=== PATIENT | female | born 1985 | race African-American/Black ===

== ENCOUNTER 2018-07-06 00:33 | Emergency (ER) | payer OTHER ==
[~2018-07-06] VITALS: Ht 167.6 cm; Wt 126.5 kg
[~2018-07-06 00:33] MED LIST: BACTRIM DS TAB1 EACH PO; GLIPIZIDE XL10 MG PO; GLUCOPHAGE500 MG PO; KEFLEX500 MG PO; MEDROLDOSEPACK PO; NOHOMEMEDICATIONS; TRIAMCINOLONE A80 G2 TOP
[2018-07-06] MEDS ORDERED: LISINOPRIL20 MG PO (01:01)
[2018-07-06] MEDS ORDERED: HYDROCHLOROTHIA25 M2 PO (01:01)
[2018-07-06] MEDS ORDERED: GLUCOPHAGE XR500 MG PO (01:02)
[2018-07-06] MEDS ORDERED: HUMALOG100 UNIT/1 SUBQ (01:02)
[2018-07-06 02:20] VITALS: BP 134/68
== END 2018-07-06 02:24 | disposition home or self-care (01) ==
LOC: ER 00:33
DX: J06.9 Acute upper respiratory infection, unspecified (principal); J02.9 Acute pharyngitis, unspecified; E11.9 Type 2 diabetes mellitus without complications; I10 Essential (primary) hypertension; Z79.4 Long term (current) use of insulin; Z79.899 Other long term (current) drug therapy

== ENCOUNTER 2019-03-22 18:32 | Inpatient (IN) | payer OTHER ==
[~2019-03-22] VITALS: Ht 167.6 cm; Wt 134.7 kg
[~2019-03-22 18:32] MED LIST changes: +GLUCOPHAGE XR500 MG PO; +HUMALOG100 UNIT/1 SUBQ; +HYDROCHLOROTHIA25 M2 PO; +LISINOPRIL20 MG PO
[2019-03-22 18:35] VITALS: BP 173/104
[2019-03-22 20:28] LABS: ABSOLUTE NEUTROPHILS 14.1 thou/uL (1.4-8.2); BASOPHILS 0.5 % (0.0-2.0); EOSINOPHILS 0.1 % (0.0-3.0); HEMATOCRIT 29.3 % (37.0-47.0); HEMOGLOBIN 9.5 gm/dL (12.0-15.0); LYMPHOCYTES 7.5 % (24.0-44.0); MCH 27.5 pg (26.0-34.0); MCHC 32.5 g/dL (28.0-37.0); MCV 84.6 fL (80.0-100.0); MONOCYTES 9.3 % (1.0-8.0); PLATELET COUNT 317 thou/uL (150-400); POLYS 82.6 % (36.0-66.0); RBC 3.46 mil/uL (4.20-5.00); RDW 13.8 % (10.5-14.5)
[2019-03-22 20:37] LABS: CALCIUM 9.2 mg/dL (8.5-10.1); CREATININE 0.8 mg/dL (0.6-1.0); POTASSIUM 4.4 mmol/L (3.5-5.1)
[2019-03-22 20:44] LABS: ALBUMIN 2.4 g/dL (3.4-5.0); TOTAL BILIRUBIN 0.8 mg/dL (<0.1-1.0); TOTAL PROTEIN 7.5 g/dL (6.4-8.2)
[2019-03-23] VITALS (10 sets, daily range): BP systolic 135–168; BP diastolic 81–102
[2019-03-23 06:04] LABS: HEMATOCRIT 27.7 % (37.0-47.0); HEMOGLOBIN 9.1 gm/dL (12.0-15.0); MCHC 32.9 g/dL (28.0-37.0); MCV 85.2 fL (80.0-100.0); RBC 3.25 mil/uL (4.20-5.00); WBC 16.4 thou/uL (4.0-11.0)
[2019-03-23 06:32] LABS: CALCIUM 8.8 mg/dL (8.5-10.1); CREATININE 0.9 mg/dL (0.6-1.0); POTASSIUM 4.4 mmol/L (3.5-5.1)
[2019-03-24 03:31] VITALS: BP 136/93
[2019-03-24 04:29] LABS: HEMOGLOBIN 8.4 gm/dL (12.0-15.0); MCH 27.6 pg (26.0-34.0); MCHC 32.5 g/dL (28.0-37.0); MCV 84.9 fL (80.0-100.0); RBC 3.06 mil/uL (4.20-5.00); RDW 13.9 % (10.5-14.5); WBC 15.6 thou/uL (4.0-11.0)
[2019-03-24 04:46] LABS: CALCIUM 8.7 mg/dL (8.5-10.1); CREATININE 0.8 mg/dL (0.6-1.0); POTASSIUM 4.7 mmol/L (3.5-5.1)
[2019-03-24 05:06] LABS: GLYCOHEMOGLOBIN (HGB A1C) 12.2 % (4.8-5.6)
[2019-03-24 07:56] VITALS: BP 143/95
[2019-03-24 11:06] VITALS: BP 167/103
[2019-03-24] MEDS ORDERED: AUGMENTIN 875-1 EACH PO (12:11)
[2019-03-24] MEDS ORDERED: METFORMIN HCL500 MG PO (12:11)
[2019-03-24 14:52] VITALS: BP 159/89
[2019-03-24 16:42] VITALS: BP 159/89
[2019-03-24 17:14] VITALS: BP 159/89
--- NOTE | 2019-03-27 14:05 | O ---
[facility] [place] [address] OPERATIVE REPORT Name: MARTITA MALONEY Room #: 211-P [facility] M.R.#: [id number] Admission: 03/22/19 ������������������ Attend Phys: Hamlet Garcia MD Discharge: 03/24/19 ������������������ Date of : 85 Report #: [id number] THIS REPORT FOR: //name// CC: FAM unknown PATRICIO HE Hamlet Garcia DATE OF SERVICE: 03/23/2019 PREOPERATIVE DIAGNOSIS: Large abscess in the right low back. POSTOPERATIVE DIAGNOSIS: Large abscess in the right low back. OPERATIVE PROCEDURE DONE: Incision and drainage of a large abscess on the right low back. OPERATING SURGEON: Dr. Tad Guaman INDICATIONS FOR THE PROCEDURE: The patient is a 33-year-old diabetic, morbidly obese, presented with a large swelling in the right low back region with a discharging wound. CT scan showed a large abscess. The patient was advised incision and drainage of the same. DESCRIPTION OF PROCEDURE: After explaining to the patient in detail and informed consent was obtained, the patient was identified in the preoperative holding area. The patient was transferred to the operating room and was placed in the supine position. Sequential compressive devices were placed for DVT prophylaxis. Appropriate preoperative antibiotics were given. After induction of anesthesia, the right flank and low back were prepped and draped in a sterile fashion. The patient was placed in the right lateral position. Through a transverse incision measuring approximately about 4 cm, the abscess cavity was entered and approximately about 50 mL of thick pus was suctioned out. The wound was then thoroughly irrigated with saline. Absolute hemostasis was ensured. The wound was then packed with 1 inch iodoform gauze, 1 inch Nu Gauze dressing was placed. The patient was stable at the end of the procedure. The patient was awoken from anesthesia and was transferred to the recovery room in stable condition. ESTIMATED BLOOD LOSS: Minimal. CONDITION OF THE PATIENT: Stable. FLUIDS GIVEN: Per anesthesia notes. SPECIMEN SENT: Pus for culture and sensitivity. [address] [address] OPERATIVE REPORT Name: MARTITA MALONEY [facility] Room #: 211-P [facility].#: [id number] Admission: 03/22/19 ������������������ Attend Phys: Hamlet Garcia MD Discharge: 03/24/19 ������������������ Date of : 85 Report #: [id number] COMPLICATIONS: None. ANESTHESIA: General anesthesia. ��������������������������������������������� <ELECTRONICALLY SIGNED> ���������������������������������������� By: Tad Guaman MD ��������������������������������������������� 03/27/19 1405 [id number] Tad Guaman MD /nt
== END 2019-03-24 17:39 | disposition home or self-care (01) | DRG 854 ==
LOC: ER 18:32 → TBA 22:30 → EROBS 22:30 → 2N 22:30 → TBA 03-23 11:13 → 2N 03-23 11:32 → ENTRNSPT 03-24 17:26 → 2N 03-24 17:39
PROVIDERS: Nurse Practitioner Family; Physician Assistant; ADMIT Hospitalist
PROC: 0J970ZZ Drainage of Back Subcutaneous Tissue and Fascia, Open Approach (ICD-10-PCS; principal; 2019-03-23)
DX: A41.9 Sepsis, unspecified organism (principal); L02.212 Cutaneous abscess of back [any part, except buttock and flank]; E11.9 Type 2 diabetes mellitus without complications; I10 Essential (primary) hypertension; Z79.899 Other long term (current) drug therapy
CPT/HCPCS: 10081; 50010; 50101; 50386; 50403; 62110; 62900; 65040; 70005